=== PATIENT | male | born 1985 | race Hispanic/Latino ===

== ENCOUNTER → 2017-10-29 | Outpatient (CLI) | payer OTHER, MEDICARE ==
[~2017-10-29] MED LIST: AUGMENTIN125 MG/5 M; AUGMENTIN250 MG/5 M PEG; BACLOFEN20 MG PEG; CIPRO HC OTIC S10 ML PEG; KEPPRA250 MG PEG; LANSOPRAZOLE30 M1 SL; METOPROLOL SUCC50 MG PEG
--- NOTE | 2017-10-29 17:13 | Diagnostic Imaging Report ---
PROCEDURE:X-RAY ABDOMEN - KUB COMPARISON:None. INDICATIONS:stone FINDINGS: Radiopaque contents within the large bowel and bladder may be related to enteric and excreted IV contrast from a recent CT scan and limits evaluation for stones. No large stones are noted. There is a non-obstructed bowel-gas pattern. PEG tube, suprapubic, and SPOT WORKER shunt catheters in place. Battery pack with lead projects over the right lower quadrant. Surgical clips in the right upper quadrant likely related to cholecystectomy. There are no acute osseous abnormalities. Retrocardiac patchy opacity. CONCLUSION: 1. Limited evaluation for stones secondary to contrast with the colon and bladder which are likely related to recent CT scan. No large stones are noted. 2. Retrocardiac opacity may reflect aspiration or pneumonia. Dictated by: Joe Gonzáles M.D. on 10/29/2017 at 17:22 Electronically approved by: Joe Gonzáles M.D. on 10/29/2017 at 17:22
== END ==
LOC: RAD 16:01
PROVIDERS: ATTEND Urology
DX: N20.0 Calculus of kidney (principal)
CPT/HCPCS: 74018

== ENCOUNTER → 2018-12-10 | Outpatient (CLI) | payer OTHER, MEDICARE ==
--- NOTE | 2018-12-10 15:54 | Diagnostic Imaging Report ---
Exam: KUB-3 views Clinical History: Renal calculus. Comparison: KUB 10/29/2017. Findings: Nonobstructive bowel gas pattern. Bowel gas obscures visualization of the kidneys. No definite urinary calcification. Partially seen PARKING CASHIER shunt courses from the left lower hemithorax into the right abdomen and terminates in the left lower abdomen. No evidence of kinking or discontinuity. Status post cholecystectomy. Gastrostomy tube projects over the left upper quadrant. Partially seen spinal stimulator with lead overlying the L3 vertebral body. No acute osseous abnormality. Impression: Bowel gas obscures visualization of the kidneys. No definite urinary calcification. Lines and tubes as above. Signed by: Dr. Geovani Zheng MD on 12/10/2018 3:50 PM
== END ==
LOC: RAD 15:00
PROVIDERS: ATTEND Urology
DX: N20.0 Calculus of kidney (principal)
CPT/HCPCS: 74018

== ENCOUNTER → 2019-08-17 | Outpatient (CLI) | payer OTHER, MEDICARE ==
--- NOTE | 2019-08-17 14:59 | Diagnostic Imaging Report ---
Abdomen, 1 view. History: Renal calculus. Comparison: 12/10/2018. Findings: Air is scattered throughout nondilated small and large bowel. Right-sided stimulator device, SANDING LINE OPERATOR shunt catheter, gastrostomy tube, and right upper quadrant surgical clips are again noted. There are no masses or abnormal calcifications. The osseous structures are intact. IMPRESSION: Non-specific bowel gas pattern. No visible stones. Signed by: Aristeo Joy on 08/17/2019 2:55 PM
== END ==
LOC: RAD 14:13
PROVIDERS: ATTEND Urology
DX: N20.0 Calculus of kidney (principal)
CPT/HCPCS: 74018

== ENCOUNTER → 2020-11-13 | Outpatient (CLI) | payer OTHER, MEDICARE | LOC: US 12:14 | PROVIDERS: ATTEND Urology | DX: N20.0 Calculus of kidney (principal) | CPT/HCPCS: 76770 ==

== ENCOUNTER → 2020-12-06 | Outpatient (CLI) | payer OTHER, MEDICARE | LOC: CT 18:00 | PROVIDERS: ATTEND Urology | DX: N20.0 Calculus of kidney (principal) | CPT/HCPCS: 74176 ==

== ENCOUNTER → 2024-05-12 | Outpatient (REF) | payer OTHER, MEDICARE ==
[~2024-05-12] MED LIST changes: +APTIOM400 MG PEG; +BACLOFEN PUMP; +FAMOTIDINE20 MG PEG; +LEVETIRACETAM750 M1 PO; +[UNRECOGNIZED DRUG - OTHER] PEG
== END ==
LOC: CT 13:04
PROVIDERS: ATTEND Urology
DX: N20.0 Calculus of kidney (principal)
CPT/HCPCS: 74176

== ENCOUNTER 2025-02-06 17:59 | Inpatient (IN) | payer MEDICARE, OTHER ==
[~2025-02-06] VITALS: Ht 177.8 cm; Wt 85.0 kg
[~2025-02-06 17:59] MED LIST changes: +DOXYCYCLINE HYC20 MG; +PREDNISONE20 MG PO; +SEVOFLURANE INHAL SOLN 250 ML PEN BTL ONE
[2025-02-06 18:46] LABS: BASOPHILS # (AUTO) 0.1 (0.0-0.1); BASOPHILS % 0.8 % (0.0-1.0); EOSINOPHILS # (AUTO) 0.3 (0.0-0.4); EOSINOPHILS % 5.3 % (0.0-6.0); HEMATOCRIT 40.4 % (38.2-49.6); HEMOGLOBIN 13.4 g/dL (14.0-18.0); LYMPHOCYTES # (AUTO) 1.8 (1.0-3.2); LYMPHOCYTES % 29.1 % (18.0-39.1); MEAN CORPUSCULAR HEMOGLOBIN 30.9 pg (28-32); MEAN CORPUSCULAR HGB CONC 33.2 g/dL (31-35); MEAN CORPUSCULAR VOLUME 93.3 fL (81-99); MONOCYTES # (AUTO) 0.6 (0.2-0.8); MONOCYTES % 9.5 % (4.4-11.3); NEUTROPHILS # (AUTO) 3.4 (2.1-6.9); PLATELET COUNT 169 x10e3/uL (140-360); RED BLOOD COUNT 4.33 x10e6/uL (4.3-5.7); RED CELL DISTRIBUTION WIDTH 14.3 % (11.7-14.4); WHITE BLOOD COUNT 6.21 x10e3/uL (4.8-10.8)
[2025-02-06 19:15] LABS: ALBUMIN 2.9 g/dL (3.5-5.0); ALBUMIN/GLOBULIN RATIO 0.5 (0.8-2.0); ANION GAP 10.2 mmol/L (8-16); BILIRUBIN,TOTAL 0.6 mg/dL (0.2-1.2); CALCIUM 9.1 mg/dL (8.4-10.2); CREATININE, SERUM 0.68 mg/dL (0.72-1.25); POTASSIUM 4.2 mmol/L (3.5-5.1); TOTAL PROTEIN 8.3 g/dL (6.5-8.1)
[2025-02-06] MEDS: ACETAMINOPHEN 325 MG TAB PO STA (19:19)
[2025-02-06 19:21] LABS: TROPONIN I 0.003 ng/mL (0-0.300)
[2025-02-06] MEDS: GLUCAGON FOR INJ 1 MG VIAL IV ONE (19:28)
[2025-02-06] MEDS: SODIUM CHLORIDE 0.9% 1000ML 1,000 ML IV STA (19:34)
[2025-02-06] MEDS ORDERED: IOPAMIDOL 370 MG/ML 100 ML INFUS..BTL INJ ONE (19:42)
[2025-02-06] MEDS: CALCIUM GLUC 1 G/50 ML NACL 50 ML IV ONE (20:22)
[2025-02-06 22:30] VITALS: TEMP 96.2
[2025-02-06] MEDS: MINERAL OIL 30 ML CUP ONE (22:45)
[2025-02-06 23:19] VITALS: PULSE 41; RESP 16
[2025-02-06] MEDS: SODIUM CHLORIDE 0.9% 1000ML 1,000 ML IV SCH (23:30)
[2025-02-06 23:45] VITALS: BP 96/59; PULSE 44; RESP 14; TEMP 94.4; O2SAT 90
[2025-02-07] VITALS (30 sets, daily range): BP systolic 88–108; BP diastolic 48–72; PULSE 41–66; RESP 10–21; TEMP 94.4–99.2; O2SAT 89–98
[2025-02-07] MEDS ORDERED: LEVETIRACETAM750 MG PEG (00:21)
[2025-02-07] MEDS ORDERED: FAMOTIDINE40 MG PEG (00:21)
[2025-02-07] MEDS ORDERED: BACLOFEN PUMP IT (00:21)
[2025-02-07 06:53] LABS: BASOPHILS % 0.5 % (0.0-1.0); EOSINOPHILS # (AUTO) 0.3 (0.0-0.4); HEMATOCRIT 38.7 % (38.2-49.6); HEMOGLOBIN 12.8 g/dL (14.0-18.0); LYMPHOCYTES # (AUTO) 1.1 (1.0-3.2); LYMPHOCYTES % 17.1 % (18.0-39.1); MEAN CORPUSCULAR HEMOGLOBIN 30.7 pg (28-32); MEAN CORPUSCULAR HGB CONC 33.1 g/dL (31-35); MEAN CORPUSCULAR VOLUME 92.8 fL (81-99); MONOCYTES # (AUTO) 0.6 (0.2-0.8); MONOCYTES % 10.3 % (4.4-11.3); NEUTROPHILS # (AUTO) 4.2 (2.1-6.9); NEUTROPHILS % 67.8 % (38.7-80.0); PLATELET COUNT 163 x10e3/uL (140-360); RED BLOOD COUNT 4.17 x10e6/uL (4.3-5.7); RED CELL DISTRIBUTION WIDTH 14.2 % (11.7-14.4); WHITE BLOOD COUNT 6.24 x10e3/uL (4.8-10.8)
[2025-02-07 07:09] LABS: CLARITY,URINE SL CLOUDY (CLEAR); COLOR,URINE YELLOW (YELLOW); LEUKOCYTE ESTERASE ,URINE MODERATE (NEGATIVE); NITRITE,URINE NEGATIVE (NEGATIVE); PH,URINE 7 (5 - 7)
[2025-02-07 07:10] LABS: BILIRUBIN,URINE NEGATIVE (NEGATIVE); GLUCOSE, URINE NEGATIVE (NEGATIVE); KETONES,URINE NEGATIVE (NEGATIVE); PROTEIN,URINE DIPSTICK 2+ (NEGATIVE); URINE UROBILINOGEN 0.2 mg/dL (0.2 - 1)
[2025-02-07 07:23] LABS: BACTERIA,URINE FEW /HPF; RBC,URINE >50 /HPF (0-5); WBC,URINE (MAN) 0-5 /HPF (0-5)
[2025-02-07 07:39] LABS: ALBUMIN 2.8 g/dL (3.5-5.0); ALBUMIN/GLOBULIN RATIO 0.6 (0.8-2.0); ANION GAP 11.1 mmol/L (8-16); BILIRUBIN,TOTAL 0.6 mg/dL (0.2-1.2); CALCIUM 8.9 mg/dL (8.4-10.2); CREATININE, SERUM 0.64 mg/dL (0.72-1.25); POTASSIUM 4.1 mmol/L (3.5-5.1); TOTAL PROTEIN 7.5 g/dL (6.5-8.1)
[2025-02-07 08:08] LABS: TROPONIN I 0.005 ng/mL (0-0.300)
[2025-02-07] MEDS: FAMOTIDINE 20 MG TAB PEG SCH (09:10)
[2025-02-07] MEDS: HEPARIN SOD (PORCINE) 5,000 UNIT/ML VIAL SC SCH (09:11)
[2025-02-07 16:05] LABS: TROPONIN I 0.002 ng/mL (0-0.300)
[2025-02-08] VITALS (27 sets, daily range): BP systolic 89–112; BP diastolic 53–80; PULSE 15–82; RESP 13–31; TEMP 96.7–98; O2SAT 90–100
[2025-02-08] MEDS: LEVETIRACETAM 500 MG TAB PEG STA (01:59)
[2025-02-08 07:35] LABS: ABG HCO3 25 mmol/L (22-26); ABG PCO2 45 mmHg (35-45); ABG PH 7.35 (7.35-7.45); ABG PO2 62 mmHg (80-105)
[2025-02-08 07:36] LABS: ABG TCO2 26
[2025-02-08 09:45] LABS: CALCIUM 8.7 mg/dL (8.4-10.2); CREATININE, SERUM 0.67 mg/dL (0.72-1.25); TOTAL PROTEIN 7.4 g/dL (6.5-8.1)
[2025-02-08] MEDS: LEVETIRACETAM ORAL SOLUTION 500 MG/5 ML SOLN PEG SCH (09:45)
[2025-02-08 11:37] LABS: ALBUMIN 2.7 g/dL (3.5-5.0); ALBUMIN/GLOBULIN RATIO 0.6 (0.8-2.0); BILIRUBIN,TOTAL 0.9 mg/dL (0.2-1.2)
[2025-02-08] MEDS ORDERED: LIDOCAINE HCL 2% LOCAL INJ 5 ML SDV VIAL INJ ONE (15:41)
[2025-02-08] MEDS ORDERED: PROPOFOL IV EMULSION 10 MG/ML 20 ML VIAL ONE (15:41)
[2025-02-08] MEDS ORDERED: FENTANYL CITRATE/PF 100MCG/2 ML INJ ONE (16:41)
[2025-02-08] MEDS ORDERED: ONDANSETRON HCL INJ 2MG/ML 2ML 2 MG/ML VIAL ONE (16:43)
[2025-02-08] MEDS: SODIUM CHLORIDE 0.9% 1000ML 1,000 ML IV SCH (17:58)
[2025-02-09] VITALS (25 sets, daily range): BP systolic 98–124; BP diastolic 59–83; PULSE 32–56; RESP 9–22; TEMP 95–97.5; O2SAT 93–99
[2025-02-09 05:48] LABS: ABG HCO3 26 mmol/L (22-26); ABG PCO2 46 mmHg (35-45); ABG PH 7.35 (7.35-7.45); ABG PO2 112 mmHg (80-105); ABG TCO2 27
[2025-02-09 06:55] LABS: BASOPHILS % 0.2 % (0.0-1.0); HEMATOCRIT 37.9 % (38.2-49.6); HEMOGLOBIN 12.9 g/dL (14.0-18.0); LYMPHOCYTES # (AUTO) 0.8 (1.0-3.2); LYMPHOCYTES % 15.5 % (18.0-39.1); MEAN CORPUSCULAR HEMOGLOBIN 31.2 pg (28-32); MEAN CORPUSCULAR VOLUME 91.5 fL (81-99); MONOCYTES # (AUTO) 0.2 (0.2-0.8); MONOCYTES % 3.9 % (4.4-11.3); NEUTROPHILS # (AUTO) 3.9 (2.1-6.9); NEUTROPHILS % 80.2 % (38.7-80.0); PLATELET COUNT 162 x10e3/uL (140-360); RED BLOOD COUNT 4.14 x10e6/uL (4.3-5.7); RED CELL DISTRIBUTION WIDTH 14.1 % (11.7-14.4)
[2025-02-09 07:23] LABS: ANION GAP 13.2 mmol/L (8-16); CALCIUM 8.9 mg/dL (8.4-10.2); CREATININE, SERUM 0.64 mg/dL (0.72-1.25); POTASSIUM 4.2 mmol/L (3.5-5.1)
[2025-02-09] MEDS: FONDAPARINUX SODIUM 2.5 MG/0.5 ML SYR SQ SCH (08:27)
[2025-02-09] MEDS ORDERED: Vancomycin IV 1 GM VIAL ONE (12:27)
[2025-02-09] MEDS: Vancomycin IV 1 GM in SODIUM CHLORIDE 0.9% 250ML 250 ML IV SCH (13:08)
[2025-02-10] VITALS (29 sets, daily range): BP systolic 87–118; BP diastolic 51–98; PULSE 37–90; RESP 10–22; TEMP 96.6–97.8; O2SAT 95–100
[2025-02-10] MEDS ORDERED: CIPRO500 MG PO (08:18)
[2025-02-10 09:16] LABS: BASOPHILS % 0.5 % (0.0-1.0); EOSINOPHILS # (AUTO) 0.2 (0.0-0.4); EOSINOPHILS % 3.5 % (0.0-6.0); HEMATOCRIT 34.3 % (38.2-49.6); HEMOGLOBIN 11.7 g/dL (14.0-18.0); LYMPHOCYTES # (AUTO) 1.9 (1.0-3.2); LYMPHOCYTES % 29.3 % (18.0-39.1); MEAN CORPUSCULAR HEMOGLOBIN 31.2 pg (28-32); MEAN CORPUSCULAR HGB CONC 34.1 g/dL (31-35); MEAN CORPUSCULAR VOLUME 91.5 fL (81-99); MONOCYTES # (AUTO) 0.8 (0.2-0.8); MONOCYTES % 12.8 % (4.4-11.3); NEUTROPHILS # (AUTO) 3.5 (2.1-6.9); NEUTROPHILS % 53.6 % (38.7-80.0); PLATELET COUNT 146 x10e3/uL (140-360); RED BLOOD COUNT 3.75 x10e6/uL (4.3-5.7); RED CELL DISTRIBUTION WIDTH 14.4 % (11.7-14.4); WHITE BLOOD COUNT 6.55 x10e3/uL (4.8-10.8)
[2025-02-11] VITALS (30 sets, daily range): BP systolic 109–130; BP diastolic 75–101; PULSE 44–106; RESP 10–20; TEMP 97.3–98.4; O2SAT 95–100
[2025-02-11 07:17] LABS: ABG HCO3 25 mmol/L (22-26); ABG PCO2 45 mmHg (35-45); ABG PH 7.35 (7.35-7.45); ABG PO2 62 mmHg (80-105); ABG TCO2 26
[2025-02-11 07:17] LABS: ABG HCO3 26 mmol/L (22-26); ABG PCO2 46 mmHg (35-45); ABG PH 7.35 (7.35-7.45); ABG PO2 112 mmHg (80-105); ABG TCO2 27
[2025-02-11 10:05] LABS: BASOPHILS % 0.4 % (0.0-1.0); EOSINOPHILS # (AUTO) 0.2 (0.0-0.4); HEMOGLOBIN 11.4 g/dL (14.0-18.0); LYMPHOCYTES % 12.2 % (18.0-39.1); MEAN CORPUSCULAR HEMOGLOBIN 31.1 pg (28-32); MEAN CORPUSCULAR HGB CONC 33.5 g/dL (31-35); MEAN CORPUSCULAR VOLUME 92.6 fL (81-99); MONOCYTES # (AUTO) 0.8 (0.2-0.8); MONOCYTES % 9.6 % (4.4-11.3); NEUTROPHILS # (AUTO) 6.4 (2.1-6.9); NEUTROPHILS % 75.4 % (38.7-80.0); PLATELET COUNT 173 x10e3/uL (140-360); RED BLOOD COUNT 3.67 x10e6/uL (4.3-5.7); RED CELL DISTRIBUTION WIDTH 14.5 % (11.7-14.4); WHITE BLOOD COUNT 8.53 x10e3/uL (4.8-10.8)
[2025-02-12] VITALS (93 sets, daily range): BP systolic 68–129; BP diastolic 37–102; PULSE 71–162; RESP 14–37; TEMP 95.8–98.1; O2SAT 65–100
[2025-02-12] MEDS: ONDANSETRON HCL INJ 2MG/ML 2ML 2 MG/ML VIAL IV PRN (02:50)
[2025-02-12] MEDS: Morphine 4mg INJECTION 4 MG/ML INJ IV PRN (02:51)
[2025-02-12] MEDS: LACTATED RINGER'S 1,000 ML INJ ONE (03:35)
[2025-02-12 04:00] LABS: BASOPHILS # (AUTO) 0.1 (0.0-0.1); BASOPHILS % 0.2 % (0.0-1.0); EOSINOPHILS # (AUTO) 0.2 (0.0-0.4); EOSINOPHILS % 0.9 % (0.0-6.0); HEMATOCRIT 31.7 % (38.2-49.6); HEMOGLOBIN 10.6 g/dL (14.0-18.0); LYMPHOCYTES # (AUTO) 1.2 (1.0-3.2); MEAN CORPUSCULAR HEMOGLOBIN 31.4 pg (28-32); MEAN CORPUSCULAR HGB CONC 33.4 g/dL (31-35); MEAN CORPUSCULAR VOLUME 93.8 fL (81-99); MONOCYTES # (AUTO) 2.1 (0.2-0.8); MONOCYTES % 10.2 % (4.4-11.3); NEUTROPHILS # (AUTO) 16.8 (2.1-6.9); NEUTROPHILS % 82.1 % (38.7-80.0); PLATELET COUNT 236 x10e3/uL (140-360); RED BLOOD COUNT 3.38 x10e6/uL (4.3-5.7)
[2025-02-12 04:04] LABS: WHITE BLOOD COUNT 20.43 x10e3/uL (4.8-10.8)
[2025-02-12 04:24] LABS: ANION GAP 16.1 mmol/L (8-16); CALCIUM 8.2 mg/dL (8.4-10.2); CREATININE, SERUM 2.04 mg/dL (0.72-1.25); POTASSIUM 4.1 mmol/L (3.5-5.1)
[2025-02-12] MEDS ORDERED: FENTANYL CITRATE/PF 100MCG/2 ML INJ ONE (07:31)
[2025-02-12] MEDS: SODIUM CHLORIDE 0.9% 250ML 250 ML IV ONE ×2 (07:39)
[2025-02-12] MEDS ORDERED: PHENYLEPHRINE HCL 1% 10 MG/ML VIAL ONE (08:33)
[2025-02-12] MEDS ORDERED: ACETAMINOPHEN 1000 MG/100 ML IV PRN (08:45)
[2025-02-12] MEDS ORDERED: NOREPINEPHRINE 8 MG/D5W 250 ML 250 ML ONE (09:01)
[2025-02-12] MEDS ORDERED: VASOPRESSIN 60 UNIT in DEXTROSE 5% 50ML 60 ML IV SCH (09:30)
[2025-02-12 09:42] LABS: BASOPHILS % 0.2 % (0.0-1.0); EOSINOPHILS # (AUTO) 0.1 (0.0-0.4); EOSINOPHILS % 0.8 % (0.0-6.0); LYMPHOCYTES # (AUTO) 2.1 (1.0-3.2); MEAN CORPUSCULAR HEMOGLOBIN 30.3 pg (28-32); MEAN CORPUSCULAR HGB CONC 30.5 g/dL (31-35); MEAN CORPUSCULAR VOLUME 99.4 fL (81-99); MONOCYTES % 7.7 % (4.4-11.3); NEUTROPHILS # (AUTO) 9.7 (2.1-6.9); PLATELET COUNT 169 x10e3/uL (140-360); RED BLOOD COUNT 1.78 x10e6/uL (4.3-5.7); RED CELL DISTRIBUTION WIDTH 15.3 % (11.7-14.4); WHITE BLOOD COUNT 13.16 x10e3/uL (4.8-10.8)
[2025-02-12] MEDS: VASOPRESSIN 60 UNIT in DEXTROSE 5% 50ML 60 ML IV SCH (09:48)
[2025-02-12 09:56] LABS: HEMATOCRIT 17.7 % (38.2-49.6); HEMOGLOBIN 5.4 g/dL (14.0-18.0)
[2025-02-12 10:09] LABS: ALBUMIN 1.5 g/dL (3.5-5.0); ALBUMIN/GLOBULIN RATIO 0.8 (0.8-2.0); ANION GAP 20.9 mmol/L (8-16); BILIRUBIN,TOTAL 0.9 mg/dL (0.2-1.2); CREATININE, SERUM 1.36 mg/dL (0.72-1.25); POTASSIUM 3.9 mmol/L (3.5-5.1); TOTAL PROTEIN 3.5 g/dL (6.5-8.1)
[2025-02-12 10:27] LABS: CALCIUM 6.2 mg/dL (8.4-10.2)
[2025-02-12] MEDS: NOREPINEPHRINE 8 MG/D5W 250 ML 250 ML IV SCH (11:53)
[2025-02-12] MEDS: ALBUMIN 5% 250ML 250 ML ONE (11:53)
[2025-02-12] MEDS: SODIUM CHLORIDE 0.9% 250ML 250 ML ONE (11:54)
[2025-02-12] MEDS ORDERED: Vancomycin IV 1 GM in SODIUM CHLORIDE 0.9% 250ML 250 ML IV SCH (12:00)
[2025-02-12 12:49] LABS: ABG HCO3 13 mmol/L (22-26); ABG PCO2 30 mmHg (35-45); ABG PH 7.24 (7.35-7.45); ABG PO2 323 mmHg (80-105); ABG TCO2 14
[2025-02-12] MEDS ORDERED: IOPAMIDOL 370 MG/ML 100 ML INFUS..BTL INJ ONE (15:26)
[2025-02-12] MEDS ORDERED: SODIUM CHLORIDE 0.9% 100 ML ONE (15:26)
[2025-02-12 16:52] LABS: BASOPHILS % 0.2 % (0.0-1.0); EOSINOPHILS % 0.1 % (0.0-6.0); HEMATOCRIT 30.9 % (38.2-49.6); HEMOGLOBIN 10.5 g/dL (14.0-18.0); LYMPHOCYTES # (AUTO) 1.1 (1.0-3.2); LYMPHOCYTES % 5.3 % (18.0-39.1); MEAN CORPUSCULAR VOLUME 91.2 fL (81-99); MONOCYTES # (AUTO) 1.3 (0.2-0.8); MONOCYTES % 6.7 % (4.4-11.3); NEUTROPHILS # (AUTO) 17.3 (2.1-6.9); PLATELET COUNT 146 x10e3/uL (140-360); RED BLOOD COUNT 3.39 x10e6/uL (4.3-5.7); RED CELL DISTRIBUTION WIDTH 14.7 % (11.7-14.4); WHITE BLOOD COUNT 19.87 x10e3/uL (4.8-10.8)
[2025-02-12 17:17] LABS: ANION GAP 14.5 mmol/L (8-16); CREATININE, SERUM 1.63 mg/dL (0.72-1.25); POTASSIUM 3.5 mmol/L (3.5-5.1)
[2025-02-12 17:19] LABS: CALCIUM 6.7 mg/dL (8.4-10.2)
[2025-02-12] MEDS: SODIUM BICARBONATE 8.4% SYRING 150 ML in DEXTROSE 5% 1,000 ML IV SCH (17:58)
[2025-02-12] MEDS ORDERED: ADENOSINE 6 MG/2 ML VIAL IV PRN (22:00)
[2025-02-13] VITALS (52 sets, daily range): BP systolic 102–130; BP diastolic 52–94; PULSE 74–122; RESP 16–36; TEMP 96.2–98.3; O2SAT 96–100
[2025-02-13 06:01] LABS: BASOPHILS # (AUTO) 0.1 (0.0-0.1); BASOPHILS % 0.4 % (0.0-1.0); EOSINOPHILS # (AUTO) 0.1 (0.0-0.4); EOSINOPHILS % 0.5 % (0.0-6.0); HEMATOCRIT 30.4 % (38.2-49.6); HEMOGLOBIN 10.5 g/dL (14.0-18.0); LYMPHOCYTES # (AUTO) 1.6 (1.0-3.2); LYMPHOCYTES % 9.8 % (18.0-39.1); MEAN CORPUSCULAR HGB CONC 34.5 g/dL (31-35); MEAN CORPUSCULAR VOLUME 89.7 fL (81-99); MONOCYTES # (AUTO) 1.4 (0.2-0.8); MONOCYTES % 8.3 % (4.4-11.3); NEUTROPHILS # (AUTO) 13.3 (2.1-6.9); NEUTROPHILS % 80.4 % (38.7-80.0); PLATELET COUNT 168 x10e3/uL (140-360); RED BLOOD COUNT 3.39 x10e6/uL (4.3-5.7); RED CELL DISTRIBUTION WIDTH 14.8 % (11.7-14.4); WHITE BLOOD COUNT 16.57 x10e3/uL (4.8-10.8)
[2025-02-13 06:05] LABS: INR 1.31; PROTHROMBIN TIME 17.4 seconds (11.9-14.5)
[2025-02-13 06:06] LABS: PARTIAL THROMBOPLASTIN TIME 42.8 seconds (23.8-35.5)
[2025-02-13 06:18] LABS: ALBUMIN 2.1 g/dL (3.5-5.0); ALBUMIN/GLOBULIN RATIO 0.6 (0.8-2.0); ANION GAP 10.8 mmol/L (8-16); BILIRUBIN,TOTAL 2.2 mg/dL (0.2-1.2); CREATININE, SERUM 1.3 mg/dL (0.72-1.25); TOTAL PROTEIN 5.5 g/dL (6.5-8.1)
[2025-02-13 06:20] LABS: POTASSIUM 2.8 mmol/L (3.5-5.1)
[2025-02-13] MEDS: POTASSIUM CHLORIDE 20MEQ/100ML 100 ML IV SCH (07:45)
[2025-02-13] MEDS: LACTULOSE SYRUP 20 GM/30 ML UDC PEG SCH (07:47)
[2025-02-13 07:49] LABS: ABG HCO3 18 mmol/L (22-26); ABG PCO2 25 mmHg (35-45); ABG PH 7.47 (7.35-7.45); ABG PO2 117 mmHg (80-105); ABG TCO2 19
[2025-02-13] MEDS: FAMOTIDINE 20 MG TAB ONE (08:26)
[2025-02-13] MEDS: LEVETIRACETAM ORAL SOLUTION 500 MG/5 ML SOLN ONE (08:27)
[2025-02-13] MEDS: MAGNESIUM SULFATE 2GM/50ML 50 ML IV ONE (18:46)
[2025-02-14] VITALS (47 sets, daily range): BP systolic 90–145; BP diastolic 63–84; PULSE 64–100; RESP 15–30; TEMP 97.1–98.4; O2SAT 91–100
[2025-02-14 07:18] LABS: BASOPHILS % 0.1 % (0.0-1.0); EOSINOPHILS # (AUTO) 0.2 (0.0-0.4); EOSINOPHILS % 1.9 % (0.0-6.0); HEMATOCRIT 28.2 % (38.2-49.6); HEMOGLOBIN 9.9 g/dL (14.0-18.0); LYMPHOCYTES # (AUTO) 0.7 (1.0-3.2); LYMPHOCYTES % 6.5 % (18.0-39.1); MEAN CORPUSCULAR HEMOGLOBIN 31.2 pg (28-32); MEAN CORPUSCULAR HGB CONC 35.1 g/dL (31-35); MONOCYTES # (AUTO) 0.7 (0.2-0.8); MONOCYTES % 6.6 % (4.4-11.3); NEUTROPHILS # (AUTO) 9.4 (2.1-6.9); NEUTROPHILS % 84.5 % (38.7-80.0); PLATELET COUNT 180 x10e3/uL (140-360); RED BLOOD COUNT 3.17 x10e6/uL (4.3-5.7); RED CELL DISTRIBUTION WIDTH 14.8 % (11.7-14.4); WHITE BLOOD COUNT 11.15 x10e3/uL (4.8-10.8)
[2025-02-14 07:53] LABS: ALBUMIN 1.9 g/dL (3.5-5.0); ALBUMIN/GLOBULIN RATIO 0.5 (0.8-2.0); ANION GAP 12.4 mmol/L (8-16); BILIRUBIN,TOTAL 1.9 mg/dL (0.2-1.2); CALCIUM 8.3 mg/dL (8.4-10.2); CREATININE, SERUM 0.78 mg/dL (0.72-1.25); TOTAL PROTEIN 5.6 g/dL (6.5-8.1)
[2025-02-14 07:55] LABS: POTASSIUM 2.4 mmol/L (3.5-5.1)
[2025-02-14 09:27] LABS: ABG HCO3 26 mmol/L (22-26); ABG PCO2 37 mmHg (35-45); ABG PH 7.46 (7.35-7.45); ABG PO2 109 mmHg (80-105); ABG TCO2 27
[2025-02-14] MEDS: POTASSIUM CHLORIDE 20MEQ/100ML 100 ML IV SCH ×2 (10:09→17:28)
[2025-02-14 10:10] LABS: BAND NEUTROPHILS % (MANUAL) 1 %; EOSINOPHILS % (MANUAL) 3 % (0-7); LYMPHOCYTES % (MANUAL) 5 % (19-48); MONOCYTES % (MANUAL) 6 % (3.4-9.0); NEUTROPHILS % (MANUAL) 85 % (40-74)
[2025-02-14 10:11] LABS: PLATELET ESTIMATE ADEQUATE; PLATELET MORPHOLOGY COMMENT NORMAL; RBC MORPHOLOGY COMMENT NORMAL
[2025-02-14] MEDS: METOCLOPRAMIDE HCL 10 MG/2ML VIAL IV SCH (15:01)
[2025-02-15] VITALS (50 sets, daily range): BP systolic 85–124; BP diastolic 59–92; PULSE 50–107; RESP 10–27; TEMP 97.8–98.9; O2SAT 97–100
[2025-02-15 06:36] LABS: BASOPHILS % 0.1 % (0.0-1.0); EOSINOPHILS # (AUTO) 0.5 (0.0-0.4); EOSINOPHILS % 5.2 % (0.0-6.0); HEMATOCRIT 23.4 % (38.2-49.6); HEMOGLOBIN 8.1 g/dL (14.0-18.0); LYMPHOCYTES # (AUTO) 1.2 (1.0-3.2); MEAN CORPUSCULAR HGB CONC 34.6 g/dL (31-35); MEAN CORPUSCULAR VOLUME 89.7 fL (81-99); MONOCYTES # (AUTO) 0.7 (0.2-0.8); MONOCYTES % 6.8 % (4.4-11.3); NEUTROPHILS # (AUTO) 7.4 (2.1-6.9); NEUTROPHILS % 75.5 % (38.7-80.0); PLATELET COUNT 151 x10e3/uL (140-360); RED BLOOD COUNT 2.61 x10e6/uL (4.3-5.7); RED CELL DISTRIBUTION WIDTH 15.3 % (11.7-14.4)
[2025-02-15 06:59] LABS: ANION GAP 9.9 mmol/L (8-16); CALCIUM 7.9 mg/dL (8.4-10.2); CREATININE, SERUM 0.61 mg/dL (0.72-1.25)
[2025-02-15 07:05] LABS: POTASSIUM 2.9 mmol/L (3.5-5.1)
[2025-02-15] MEDS: POTASSIUM CHLORIDE 20MEQ/100ML 100 ML IV SCH (08:12)
[2025-02-15 09:28] LABS: BAND NEUTROPHILS % (MANUAL) 4 %; EOSINOPHILS % (MANUAL) 3 % (0-7); LYMPHOCYTES % (MANUAL) 13 % (19-48); MONOCYTES % (MANUAL) 4 % (3.4-9.0); NEUTROPHILS % (MANUAL) 76 % (40-74)
[2025-02-15 09:31] LABS: PLATELET ESTIMATE ADEQUATE; PLATELET MORPHOLOGY COMMENT NORMAL; RBC MORPHOLOGY COMMENT NORMAL
[2025-02-16] VITALS (24 sets, daily range): BP systolic 96–132; BP diastolic 65–107; PULSE 84–102; RESP 15–43; TEMP 94.5–98; O2SAT 88–100
[2025-02-16 06:56] LABS: BASOPHILS % 0.1 % (0.0-1.0); EOSINOPHILS # (AUTO) 0.3 (0.0-0.4); EOSINOPHILS % 2.7 % (0.0-6.0); HEMATOCRIT 28.5 % (38.2-49.6); HEMOGLOBIN 9.5 g/dL (14.0-18.0); LYMPHOCYTES # (AUTO) 0.8 (1.0-3.2); LYMPHOCYTES % 7.5 % (18.0-39.1); MEAN CORPUSCULAR HEMOGLOBIN 30.8 pg (28-32); MEAN CORPUSCULAR HGB CONC 33.3 g/dL (31-35); MEAN CORPUSCULAR VOLUME 92.5 fL (81-99); MONOCYTES # (AUTO) 0.8 (0.2-0.8); MONOCYTES % 7.6 % (4.4-11.3); NEUTROPHILS # (AUTO) 8.8 (2.1-6.9); NEUTROPHILS % 81.5 % (38.7-80.0); PLATELET COUNT 195 x10e3/uL (140-360); RED BLOOD COUNT 3.08 x10e6/uL (4.3-5.7); RED CELL DISTRIBUTION WIDTH 15.7 % (11.7-14.4); WHITE BLOOD COUNT 10.85 x10e3/uL (4.8-10.8)
[2025-02-16 07:24] LABS: ANION GAP 9.7 mmol/L (8-16); CALCIUM 8.1 mg/dL (8.4-10.2); CREATININE, SERUM 0.56 mg/dL (0.72-1.25); POTASSIUM 2.7 mmol/L (3.5-5.1)
[2025-02-16 07:40] LABS: MAGNESIUM 1.7 MG/DL (1.3-2.1)
[2025-02-16 08:03] LABS: THYROID STIMULATING HORMONE 2.851 uIU/mL (0.350-4.940)
[2025-02-16] MEDS: POTASSIUM CHLORIDE 20MEQ/100ML 100 ML IV SCH (09:09)
[2025-02-16] MEDS: FUROSEMIDE INJ 10 MG/ML 2 ML VIAL IV ONE (09:09)
[2025-02-16] MEDS: SODIUM FERRIC GLUCONATE COMPLX 125 MG in SODIUM CHLORIDE 0.9% 100 ML IV SCH (09:12)
[2025-02-16] MEDS: MUPIROCIN 2% OINT 22 GM TUBE TOP SCH (09:23)
[2025-02-16 09:25] LABS: ABG HCO3 314 mmol/L (22-26); ABG PCO2 52 mmHg (35-45); ABG PH 7.39 (7.35-7.45); ABG PO2 52 mmHg (80-105); ABG TCO2 33
[2025-02-16] MEDS ORDERED: MAGNESIUM SULFATE 2GM/50ML IV ONE (14:30)
[2025-02-16] MEDS: POTASSIUM CHLORIDE 20MEQ/100ML 200 ML IV SCH (15:18)
[2025-02-16] MEDS: MAGNESIUM SULFATE 2GM/50ML 50 ML IV ONE (15:18)
[2025-02-17] VITALS (24 sets, daily range): BP systolic 90–114; BP diastolic 62–82; PULSE 57–107; RESP 10–40; TEMP 97.4–98.3; O2SAT 84–100
[2025-02-17 06:55] LABS: BASOPHILS % 0.4 % (0.0-1.0); EOSINOPHILS # (AUTO) 0.4 (0.0-0.4); EOSINOPHILS % 3.6 % (0.0-6.0); HEMATOCRIT 27.4 % (38.2-49.6); LYMPHOCYTES # (AUTO) 1.8 (1.0-3.2); LYMPHOCYTES % 16.1 % (18.0-39.1); MEAN CORPUSCULAR HEMOGLOBIN 30.9 pg (28-32); MEAN CORPUSCULAR HGB CONC 32.8 g/dL (31-35); MEAN CORPUSCULAR VOLUME 94.2 fL (81-99); NEUTROPHILS # (AUTO) 7.8 (2.1-6.9); NEUTROPHILS % 69.6 % (38.7-80.0); PLATELET COUNT 248 x10e3/uL (140-360); RED BLOOD COUNT 2.91 x10e6/uL (4.3-5.7); RED CELL DISTRIBUTION WIDTH 15.5 % (11.7-14.4); WHITE BLOOD COUNT 11.17 x10e3/uL (4.8-10.8)
[2025-02-17 07:21] LABS: ANION GAP 8.3 mmol/L (8-16); CREATININE, SERUM 0.66 mg/dL (0.72-1.25)
[2025-02-17 07:22] LABS: POTASSIUM 3.3 mmol/L (3.5-5.1)
[2025-02-17] MEDS: DEXTROSE 50% SYRINGE 50 ML IV ONE (07:33)
[2025-02-17] MEDS: POTASSIUM CHLORIDE 20MEQ/100ML 200 ML IV ONE (11:59)
[2025-02-17] MEDS: LACTATED RINGER'S 1,000 ML INJ SCH (12:00)
[2025-02-18] VITALS (31 sets, daily range): BP systolic 80–122; BP diastolic 14–92; PULSE 60–94; RESP 11–33; TEMP 97.5–97.7; O2SAT 90–100
[2025-02-18 06:29] LABS: BASOPHILS % 0.5 % (0.0-1.0); EOSINOPHILS # (AUTO) 0.5 (0.0-0.4); EOSINOPHILS % 5.1 % (0.0-6.0); HEMATOCRIT 24.7 % (38.2-49.6); LYMPHOCYTES # (AUTO) 1.7 (1.0-3.2); LYMPHOCYTES % 19.6 % (18.0-39.1); MEAN CORPUSCULAR HGB CONC 32.4 g/dL (31-35); MEAN CORPUSCULAR VOLUME 95.7 fL (81-99); MONOCYTES % 11.7 % (4.4-11.3); NEUTROPHILS # (AUTO) 5.5 (2.1-6.9); NEUTROPHILS % 61.7 % (38.7-80.0); PLATELET COUNT 236 x10e3/uL (140-360); RED BLOOD COUNT 2.58 x10e6/uL (4.3-5.7); RED CELL DISTRIBUTION WIDTH 15.7 % (11.7-14.4); WHITE BLOOD COUNT 8.82 x10e3/uL (4.8-10.8)
[2025-02-18 07:19] LABS: ANION GAP 11.3 mmol/L (8-16); BILIRUBIN,TOTAL 0.7 mg/dL (0.2-1.2); CALCIUM 7.9 mg/dL (8.4-10.2); CREATININE, SERUM 0.61 mg/dL (0.72-1.25); TOTAL PROTEIN 5.2 g/dL (6.5-8.1)
[2025-02-18 07:36] LABS: POTASSIUM 3.3 mmol/L (3.5-5.1)
[2025-02-18 08:20] LABS: ALBUMIN 1.5 g/dL (3.5-5.0); ALBUMIN/GLOBULIN RATIO 0.4 (0.8-2.0)
[2025-02-18] MEDS: DEXTROSE 50% SYRINGE 50 ML IV ONE (08:43)
[2025-02-18] MEDS: POTASSIUM CHLORIDE 20MEQ/100ML 100 ML IV SCH (08:51)
[2025-02-18] MEDS: FAMOTIDINE 20 MG/2 ML VIAL IV SCH (08:54)
[2025-02-19] VITALS (16 sets, daily range): BP systolic 94–116; BP diastolic 68–80; PULSE 55–91; RESP 10–30; TEMP 97.5–98.6; O2SAT 92–100
[2025-02-19] MEDS: POTASSIUM CHLORIDE 20MEQ/100ML 100 ML IV SCH (09:33)
[2025-02-20] VITALS (29 sets, daily range): BP systolic 90–122; BP diastolic 61–95; PULSE 50–96; RESP 10–26; TEMP 96.6–98.6; O2SAT 87–100
[2025-02-20 06:56] LABS: BASOPHILS % 0.5 % (0.0-1.0); EOSINOPHILS # (AUTO) 0.6 (0.0-0.4); HEMOGLOBIN 8.2 g/dL (14.0-18.0); LYMPHOCYTES # (AUTO) 1.7 (1.0-3.2); LYMPHOCYTES % 26.4 % (18.0-39.1); MEAN CORPUSCULAR HEMOGLOBIN 30.7 pg (28-32); MEAN CORPUSCULAR HGB CONC 31.5 g/dL (31-35); MEAN CORPUSCULAR VOLUME 97.4 fL (81-99); MONOCYTES # (AUTO) 0.7 (0.2-0.8); MONOCYTES % 11.2 % (4.4-11.3); NEUTROPHILS # (AUTO) 3.2 (2.1-6.9); NEUTROPHILS % 49.8 % (38.7-80.0); PLATELET COUNT 277 x10e3/uL (140-360); RED BLOOD COUNT 2.67 x10e6/uL (4.3-5.7); RED CELL DISTRIBUTION WIDTH 15.8 % (11.7-14.4); WHITE BLOOD COUNT 6.45 x10e3/uL (4.8-10.8)
[2025-02-20 07:28] LABS: MAGNESIUM 1.6 MG/DL (1.3-2.1)
[2025-02-20 07:30] LABS: ALBUMIN 1.5 g/dL (3.5-5.0); ALBUMIN/GLOBULIN RATIO 0.4 (0.8-2.0); ANION GAP 9.8 mmol/L (8-16); BILIRUBIN,TOTAL 0.4 mg/dL (0.2-1.2); CALCIUM 8.2 mg/dL (8.4-10.2); CREATININE, SERUM 0.58 mg/dL (0.72-1.25); POTASSIUM 3.8 mmol/L (3.5-5.1); TOTAL PROTEIN 5.5 g/dL (6.5-8.1)
[2025-02-20] MEDS: MAGNESIUM SULFATE 2GM/50ML 50 ML IV ONE (09:03)
[2025-02-20 10:30] LABS: ABG HCO3 26 mmol/L (22-26); ABG PCO2 37 mmHg (35-45); ABG PH 7.46 (7.35-7.45); ABG PO2 109 mmHg (80-105); ABG TCO2 27
[2025-02-20 10:30] LABS: ABG HCO3 31 mmol/L (22-26); ABG PCO2 52 mmHg (35-45); ABG PH 7.39 (7.35-7.45); ABG PO2 52 mmHg (80-105); ABG TCO2 33
[2025-02-20 10:30] LABS: ABG HCO3 18 mmol/L (22-26); ABG PCO2 25 mmHg (35-45); ABG PH 7.47 (7.35-7.45); ABG PO2 117 mmHg (80-105); ABG TCO2 19
[2025-02-20 10:30] LABS: ABG HCO3 13 mmol/L (22-26); ABG PCO2 30 mmHg (35-45); ABG PH 7.24 (7.35-7.45); ABG PO2 323 mmHg (80-105); ABG TCO2 14
[2025-02-21] VITALS (26 sets, daily range): BP systolic 100–119; BP diastolic 73–90; PULSE 51–98; RESP 13–33; TEMP 96.7–98.4; O2SAT 82–100
[2025-02-22] VITALS (26 sets, daily range): BP systolic 102–118; BP diastolic 72–90; PULSE 59–109; RESP 10–44; TEMP 97.8–100.3; O2SAT 87–100
[2025-02-22 06:09] LABS: BASOPHILS % 0.4 % (0.0-1.0); EOSINOPHILS # (AUTO) 0.6 (0.0-0.4); EOSINOPHILS % 6.3 % (0.0-6.0); HEMATOCRIT 28.5 % (38.2-49.6); LYMPHOCYTES # (AUTO) 1.9 (1.0-3.2); LYMPHOCYTES % 21.8 % (18.0-39.1); MEAN CORPUSCULAR HEMOGLOBIN 31.5 pg (28-32); MEAN CORPUSCULAR HGB CONC 31.6 g/dL (31-35); MEAN CORPUSCULAR VOLUME 99.7 fL (81-99); MONOCYTES # (AUTO) 0.7 (0.2-0.8); MONOCYTES % 7.9 % (4.4-11.3); NEUTROPHILS # (AUTO) 5.4 (2.1-6.9); NEUTROPHILS % 61.1 % (38.7-80.0); PLATELET COUNT 374 x10e3/uL (140-360); RED BLOOD COUNT 2.86 x10e6/uL (4.3-5.7)
[2025-02-22 06:49] LABS: ANION GAP 13.5 mmol/L (8-16); CALCIUM 8.2 mg/dL (8.4-10.2); CREATININE, SERUM 0.63 mg/dL (0.72-1.25); MAGNESIUM 1.6 MG/DL (1.3-2.1); POTASSIUM 4.5 mmol/L (3.5-5.1)
[2025-02-22] MEDS: MAGNESIUM SULFATE 2GM/50ML 50 ML IV ONE (09:40)
[2025-02-22] MEDS: Vancomycin IV 1 GM in SODIUM CHLORIDE 0.9% 250ML 250 ML IV ONE (11:25)
[2025-02-22] MEDS: ACETAMINOPHEN 325 MG/10 ML UDC NG PRN (11:26)
[2025-02-23] VITALS (28 sets, daily range): BP systolic 97–115; BP diastolic 73–89; PULSE 58–85; RESP 11–33; TEMP 98–98.5; O2SAT 94–100
[2025-02-23 05:54] LABS: BASOPHILS # (AUTO) 0.1 (0.0-0.1); BASOPHILS % 0.5 % (0.0-1.0); EOSINOPHILS # (AUTO) 0.4 (0.0-0.4); HEMATOCRIT 29.1 % (38.2-49.6); HEMOGLOBIN 9.2 g/dL (14.0-18.0); LYMPHOCYTES # (AUTO) 1.7 (1.0-3.2); LYMPHOCYTES % 12.6 % (18.0-39.1); MEAN CORPUSCULAR HEMOGLOBIN 31.5 pg (28-32); MEAN CORPUSCULAR HGB CONC 31.6 g/dL (31-35); MEAN CORPUSCULAR VOLUME 99.7 fL (81-99); MONOCYTES # (AUTO) 0.8 (0.2-0.8); MONOCYTES % 6.3 % (4.4-11.3); NEUTROPHILS % 75.7 % (38.7-80.0); PLATELET COUNT 379 x10e3/uL (140-360); RED BLOOD COUNT 2.92 x10e6/uL (4.3-5.7); RED CELL DISTRIBUTION WIDTH 16.2 % (11.7-14.4); WHITE BLOOD COUNT 13.15 x10e3/uL (4.8-10.8)
[2025-02-23 06:19] LABS: ALBUMIN 1.8 g/dL (3.5-5.0); ALBUMIN/GLOBULIN RATIO 0.4 (0.8-2.0); ANION GAP 12.1 mmol/L (8-16); BILIRUBIN,TOTAL 0.4 mg/dL (0.2-1.2); CALCIUM 8.3 mg/dL (8.4-10.2); CREATININE, SERUM 0.62 mg/dL (0.72-1.25); POTASSIUM 4.1 mmol/L (3.5-5.1); TOTAL PROTEIN 6.9 g/dL (6.5-8.1)
[2025-02-23 06:31] LABS: MAGNESIUM 1.7 MG/DL (1.3-2.1); PHOSPHORUS 3.1 MG/DL (2.3-4.7)
[2025-02-23] MEDS: MAGNESIUM SULF 1GRAM/DEXTROSE 100 ML IV ONE (09:01)
[2025-02-23] MEDS: MAGNESIUM OXIDE 400 MG TAB PEG SCH (09:03)
[2025-02-24] VITALS (29 sets, daily range): BP systolic 88–109; BP diastolic 61–81; PULSE 47–92; RESP 11–27; TEMP 97.7–98.8; O2SAT 89–100
[2025-02-24 07:09] LABS: BASOPHILS % 0.5 % (0.0-1.0); EOSINOPHILS # (AUTO) 0.4 (0.0-0.4); EOSINOPHILS % 5.3 % (0.0-6.0); HEMATOCRIT 27.4 % (38.2-49.6); HEMOGLOBIN 8.6 g/dL (14.0-18.0); LYMPHOCYTES # (AUTO) 1.7 (1.0-3.2); LYMPHOCYTES % 20.7 % (18.0-39.1); MEAN CORPUSCULAR HEMOGLOBIN 31.4 pg (28-32); MEAN CORPUSCULAR HGB CONC 31.4 g/dL (31-35); MONOCYTES # (AUTO) 0.7 (0.2-0.8); MONOCYTES % 8.4 % (4.4-11.3); NEUTROPHILS # (AUTO) 5.3 (2.1-6.9); NEUTROPHILS % 63.1 % (38.7-80.0); PLATELET COUNT 365 x10e3/uL (140-360); RED BLOOD COUNT 2.74 x10e6/uL (4.3-5.7); RED CELL DISTRIBUTION WIDTH 16.5 % (11.7-14.4); WHITE BLOOD COUNT 8.34 x10e3/uL (4.8-10.8)
[2025-02-24 07:46] LABS: ALBUMIN 1.8 g/dL (3.5-5.0); ALBUMIN/GLOBULIN RATIO 0.4 (0.8-2.0); ANION GAP 10.9 mmol/L (8-16); BILIRUBIN,TOTAL 0.3 mg/dL (0.2-1.2); CALCIUM 8.3 mg/dL (8.4-10.2); CREATININE, SERUM 0.61 mg/dL (0.72-1.25); POTASSIUM 3.9 mmol/L (3.5-5.1); TOTAL PROTEIN 6.5 g/dL (6.5-8.1)
[2025-02-24] MEDS: METOCLOPRAMIDE HCL 10 MG TAB PEG SCH (21:16)
[2025-02-25] VITALS (19 sets, daily range): BP systolic 92–132; BP diastolic 67–97; PULSE 53–72; RESP 11–22; TEMP 97.6–99.8; O2SAT 90–100
[2025-02-25] MEDS: FAMOTIDINE 20 MG TAB PEG SCH (10:34)
[2025-02-26] VITALS (29 sets, daily range): BP systolic 93–113; BP diastolic 57–84; PULSE 50–71; RESP 14–22; TEMP 97.7–98; O2SAT 92–100
[2025-02-27] VITALS (47 sets, daily range): BP systolic 92–113; BP diastolic 57–84; PULSE 44–71; RESP 12–20; TEMP 97.4–98; O2SAT 87–100
[2025-02-28] VITALS (16 sets, daily range): BP systolic 101–122; BP diastolic 64–93; PULSE 48–76; RESP 12–18; TEMP 97.5–97.9; O2SAT 90–100
[2025-02-28 06:49] LABS: BASOPHILS # (AUTO) 0.1 (0.0-0.1); BASOPHILS % 0.7 % (0.0-1.0); EOSINOPHILS # (AUTO) 0.4 (0.0-0.4); HEMATOCRIT 32.1 % (38.2-49.6); LYMPHOCYTES # (AUTO) 1.5 (1.0-3.2); LYMPHOCYTES % 20.6 % (18.0-39.1); MEAN CORPUSCULAR HEMOGLOBIN 31.2 pg (28-32); MEAN CORPUSCULAR HGB CONC 31.2 g/dL (31-35); MONOCYTES # (AUTO) 0.7 (0.2-0.8); NEUTROPHILS # (AUTO) 4.6 (2.1-6.9); NEUTROPHILS % 63.9 % (38.7-80.0); PLATELET COUNT 563 x10e3/uL (140-360); RED BLOOD COUNT 3.21 x10e6/uL (4.3-5.7); RED CELL DISTRIBUTION WIDTH 17.2 % (11.7-14.4); WHITE BLOOD COUNT 7.19 x10e3/uL (4.8-10.8)
[2025-02-28 07:18] LABS: ALBUMIN 2.2 g/dL (3.5-5.0); ALBUMIN/GLOBULIN RATIO 0.4 (0.8-2.0); ANION GAP 13.2 mmol/L (8-16); BILIRUBIN,TOTAL 0.3 mg/dL (0.2-1.2); CALCIUM 8.8 mg/dL (8.4-10.2); CREATININE, SERUM 0.6 mg/dL (0.72-1.25); POTASSIUM 4.2 mmol/L (3.5-5.1); TOTAL PROTEIN 7.3 g/dL (6.5-8.1)
[2025-03-01 07:33] LABS: ABG HCO3 28 mmol/L (22-26); ABG PCO2 40 mmHg (35-45); ABG PH 7.45 (7.35-7.45); ABG PO2 157 mmHg (80-105); ABG TCO2 29
== END 2025-02-28 16:27 | disposition home or self-care (01) | DRG 698 ==
LOC: ER 18:11 → ERHOLD 22:17 → ICU 23:36
PROVIDERS: ADMIT Internal Medicine; ATTEND Internal Medicine
PROC: 0T7D8ZZ Dilation of Urethra, Via Natural or Artificial Opening Endoscopic (ICD-10-PCS; 2025-02-08)
PROC: 0TPB80Z Removal of Drainage Device from Bladder, Via Natural or Artificial Opening Endoscopic (ICD-10-PCS; 2025-02-08)
PROC: 0T9B40Z Drainage of Bladder with Drainage Device, Percutaneous Endoscopic Approach (ICD-10-PCS; 2025-02-08)
PROC: BT101ZZ Fluoroscopy of Bladder using Low Osmolar Contrast (ICD-10-PCS; 2025-02-08)
PROC: 02HV33Z Insertion of Infusion Device into Superior Vena Cava, Percutaneous Approach (ICD-10-PCS; principal; 2025-02-10)
PROC: B548ZZA Ultrasonography of Superior Vena Cava, Guidance (ICD-10-PCS; 2025-02-10)
PROC: 30233N1 Transfusion of Nonautologous Red Blood Cells into Peripheral Vein, Percutaneous Approach (ICD-10-PCS; 2025-02-12)
PROC: 30233N1 Transfusion of Nonautologous Red Blood Cells into Peripheral Vein, Percutaneous Approach (ICD-10-PCS; 2025-02-12)
PROC: 3E033XZ Introduction of Vasopressor into Peripheral Vein, Percutaneous Approach (ICD-10-PCS; 2025-02-12)
PROC: 5A1945Z Respiratory Ventilation, 24-96 Consecutive Hours (ICD-10-PCS; 2025-02-12)
PROC: 0TCB8ZZ Extirpation of Matter from Bladder, Via Natural or Artificial Opening Endoscopic (ICD-10-PCS; 2025-02-12)
PROC: 0T7D8ZZ Dilation of Urethra, Via Natural or Artificial Opening Endoscopic (ICD-10-PCS; 2025-02-12)
PROC: 0T2BX0Z Change Drainage Device in Bladder, External Approach (ICD-10-PCS; 2025-02-12)
PROC: BT101ZZ Fluoroscopy of Bladder using Low Osmolar Contrast (ICD-10-PCS; 2025-02-12)
PROC: 4A033R1 Measurement of Arterial Saturation, Peripheral, Percutaneous Approach (ICD-10-PCS; 2025-02-14)
PROC: 4A033R1 Measurement of Arterial Saturation, Peripheral, Percutaneous Approach (ICD-10-PCS; 2025-02-14)
PROC: 5A1935Z Respiratory Ventilation, Less than 24 Consecutive Hours (ICD-10-PCS; 2025-02-14)
PROC: 4A033R1 Measurement of Arterial Saturation, Peripheral, Percutaneous Approach (ICD-10-PCS; 2025-02-16)
PROC: 4A033R1 Measurement of Arterial Saturation, Peripheral, Percutaneous Approach (ICD-10-PCS; 2025-02-16)
PROC: 5A1945Z Respiratory Ventilation, 24-96 Consecutive Hours (ICD-10-PCS; 2025-02-16)
PROC: 5A1945Z Respiratory Ventilation, 24-96 Consecutive Hours (ICD-10-PCS; 2025-02-18)
PROC: 5A1945Z Respiratory Ventilation, 24-96 Consecutive Hours (ICD-10-PCS; 2025-02-18)
PROC: 02HV33Z Insertion of Infusion Device into Superior Vena Cava, Percutaneous Approach (ICD-10-PCS; 2025-02-22)
PROC: B548ZZA Ultrasonography of Superior Vena Cava, Guidance (ICD-10-PCS; 2025-02-22)
PROC: 4A033R1 Measurement of Arterial Saturation, Peripheral, Percutaneous Approach (ICD-10-PCS; 2025-02-22)
PROC: 5A1945Z Respiratory Ventilation, 24-96 Consecutive Hours (ICD-10-PCS; 2025-02-22)
PROC: 5A1935Z Respiratory Ventilation, Less than 24 Consecutive Hours (ICD-10-PCS; 2025-02-23)
DX: T83.010A Breakdown (mechanical) of cystostomy catheter, initial encounter (principal); J69.0 Pneumonitis due to inhalation of food and vomit; R53.2 Functional quadriplegia; R57.1 Hypovolemic shock; K68.3 Retroperitoneal hematoma; J96.22 Acute and chronic respiratory failure with hypercapnia; J96.21 Acute and chronic respiratory failure with hypoxia; J90 Pleural effusion, not elsewhere classified; J98.11 Atelectasis; D62 Acute posthemorrhagic anemia; E87.20 Acidosis, unspecified; N13.30 Unspecified hydronephrosis; I47.19 Other supraventricular tachycardia; E44.0 Moderate protein-calorie malnutrition; N35.916 Unspecified urethral stricture, male, overlapping sites; Y83.3 Surgical operation with formation of external stoma as the cause of abnormal reaction of the patient, or of later complication, without mention of misadventure at the time of the procedure; Y92.009 Unspecified place in unspecified non-institutional (private) residence as the place of occurrence of the external cause; R00.1 Bradycardia, unspecified; G90.9 Disorder of the autonomic nervous system, unspecified; T68.XXXA Hypothermia, initial encounter; G40.909 Epilepsy, unspecified, not intractable, without status epilepticus; S06.9XAS Unspecified intracranial injury with loss of consciousness status unknown, sequela; V89.2XXS Person injured in unspecified motor-vehicle accident, traffic, sequela; Z43.5 Encounter for attention to cystostomy; B96.5 Pseudomonas (aeruginosa) (mallei) (pseudomallei) as the cause of diseases classified elsewhere; N32.89 Other specified disorders of bladder; B95.2 Enterococcus as the cause of diseases classified elsewhere; Z22.39 Carrier of other specified bacterial diseases; R31.0 Gross hematuria; R33.9 Retention of urine, unspecified; K56.41 Fecal impaction; R62.7 Adult failure to thrive; Z68.26 Body mass index [BMI] 26.0-26.9, adult; Z71.3 Dietary counseling and surveillance; E87.6 Hypokalemia; E83.42 Hypomagnesemia; R40.2422 Glasgow coma scale score 9-12, at arrival to emergency department; Z93.1 Gastrostomy status; Z93.0 Tracheostomy status; Z74.01 Bed confinement status; Z89.511 Acquired absence of right leg below knee
CPT/HCPCS: 36415; 36569; 36600; 71045; 71260; 74177; 74178; 74420; 74470; 76604; 80048; 80053; 80202; 81001; 82550; 82805; 82948; 83605; 83690; 83735; 83880; 84100; 84443; 84484; 85025; 85045; 85610; 85730; 86850; 86900; 86920; 87040; 87086; 87186; 93005; 93306; 94002; 94003; 94660; 94799; 96361; 99252; 99285; C1758; C1769; J1308; J1610; J1644; J1652; J1938; J2003; J2270; J2371; J2405; J2543; J2765; J2916; J3475; J3480; J7030; J7050; J7070; J7799; P9016; Q9967